=== PATIENT | male | born 1980 | race Caucasian/White ===

== ENCOUNTER 2017-03-13 20:01 | Emergency (ER) | payer BC ==
[~2017-03-13] VITALS: Ht 177.8 cm; Wt 95.3 kg
[2017-03-13 20:06] VITALS: BP 104/82
--- NOTE | 2017-03-13 23:54 | NUR ---
36/M c/o flu like symptoms x2 days. Pt has cough, dry, non productive cough, N/V. No vomiting noted while in ED. AOX4, no distress noted.
--- NOTE | 2017-03-13 23:55 | NUR ---
Pt swabbed for influenza and sent to lab.
--- NOTE | 2017-03-14 00:02 | NUR ---
Patient being evaluated by Dr. Demarco in overflow.
[2017-03-14 00:25] VITALS: BP 147/112
--- NOTE | 2017-03-14 00:25 | NUR ---
Patient discharged with v/s stable. Written and verbal after care instructions given and explained. Patient alert, oriented and verbalized understanding of instructions. Ambulatory with steady gait. All questions addressed prior to discharge. ID band removed. Patient advised to follow up with PMD. Rx of Motrin and Promethazine given. Patient educated on indication of medication including possible reaction and side effects. Opportunity to ask questions provided and answered.
== END 2017-03-14 00:25 | disposition home or self-care (01) ==
LOC: MED 20:01
DX: J06.9 Acute upper respiratory infection, unspecified (principal); I10 Essential (primary) hypertension; Z88.0 Allergy status to penicillin
CPT/HCPCS: 36415; 87804; 99284